=== PATIENT | female | born 1980 | race Caucasian/White ===

== ENCOUNTER 2021-08-25 18:27 | Outpatient (REF) | payer OTHER, SELFPAY ==
[2021-08-25 21:11] LABS: Bacteria Negative HPF (Negative); C & S Indicated? No; Crystals Negative HPF (Negative); Epithelial Cells Rare HPF (Negative); Mucus Negative (Negative); RBC 0-2 HPF (0-2); WBC Negative HPF (0-5)
== END 2021-08-25 18:28 | disposition home or self-care (01) ==
LOC: NCHCN 18:27
PROVIDERS: Visit Provider Nurse Practitioner Family
DX: R31.9 Hematuria, unspecified (principal)
CPT/HCPCS: 81015; 87086

== ENCOUNTER 2021-10-31 08:26 | Outpatient (REF) | payer OTHER, SELFPAY ==
[2021-10-31 13:59] LABS: HGB 13.8 g/dL (11.2-15.7); MCH 28.8 pg (27.0-33.0); MCHC 32.1 % (32.0-36.0); MCV 90 fL (80-95); MPV 9.1 fL (8.0-11.0); Platelet Count 373 10^3/uL (130-400); RDW 12.8 % (11.7-14.6); RDW-SD 42.1 fL; WBC 8.27 10^3/uL (4.4-10.8)
[2021-10-31 14:21] LABS: ALT 69 U/L (14-59); AST 23 U/L (15-37); Albumin 4.1 g/dL (3.4-5.0); Alkaline Phosphatase 105 U/L (46-116); Anion Gap 10.8 mmol/L (3-11); BUN 15 mg/dL (7-18); Bilirubin, Total 0.3 mg/dL (0.2-1.0); CO2 24.2 mmol/L (21.0-32.0); CREATININE 0.7 mg/dL (0.55-1.02); Calculated LDL 113 mg/dL (<100); Chloride 106 mmol/L (98-107); Cholesterol 202 mg/dL (<200); Glucose 91 mg/dL (74-106); HDL Cholesterol 68 mg/dL (40-60); Potassium 4.4 mmol/L (3.5-5.1); Sodium 141 mmol/L (136-145); TSH 1.13 uIU/mL (0.36-3.74); Total Protein 7.3 g/dL (6.4-8.2); Triglyceride 108 mg/dL (<150)
[2021-10-31 14:24] LABS: Hemoglobin A1C 5.6 % (<5.7)
== END 2021-10-31 08:27 | disposition home or self-care (01) ==
LOC: NCHCN 08:26
PROVIDERS: Visit Provider Nurse Practitioner Family
DX: Z00.00 Encounter for general adult medical examination without abnormal findings (principal); F10.10 Alcohol abuse, uncomplicated; Z13.29 Encounter for screening for other suspected endocrine disorder; Z13.1 Encounter for screening for diabetes mellitus; Z13.220 Encounter for screening for lipoid disorders; R31.9 Hematuria, unspecified
CPT/HCPCS: 80053; 80061; 85027; 83036; 84443

== ENCOUNTER 2022-03-16 16:51 | Outpatient (REF) | payer OTHER, SELFPAY ==
--- NOTE | 2022-03-16 16:00 | PAPFT_PTH ---
PATIENT: Taylor Meeks LOC: [facility] [id number] AGE/SX: 41/F ROOM: RE03/16/[address]: Minda Jain : 1980 BED: DIS: 03/16/2022 SPEC #: [id number] RECD: 03/17/22 13:22 STATUS: TANMAY REQ #: [id number] DAVIAN: 03/16/22 16:[address]: Minda Bowles DEPT: [facility] Cytology RECD BY: Mitzi Rehman ENTERED: 03/17/22 13:23 SP TYPE: PAPFT DAVID DR: Unknown,Unknown Tissues: 1 - CX/ENDOCX FOR PAP SMEARS Procedures: PAP THIN PREP/[facility] Screening HPV DNA PROBE Comments: [id number]
== END 2022-03-16 16:52 | disposition home or self-care (01) ==
LOC: NCHCN 16:51
PROVIDERS: Visit Provider Nurse Practitioner Family
DX: Z12.4 Encounter for screening for malignant neoplasm of cervix (principal)
CPT/HCPCS: 88142; 87624

== ENCOUNTER 2024-03-14 17:21 | Outpatient (REF) | payer BC, MEDICAID, SELFPAY ==
[2024-03-14 17:25] LABS: HCT 44.3 % (36.0-46.0); HGB 14.5 g/dL (11.2-15.7); MCH 28.5 pg (27.0-33.0); MCHC 32.7 % (32.0-36.0); MCV 87 fL (80-95); MPV 9.2 fL (8.0-11.0); Platelet Count 330 10^3/uL (130-400); RBC 5.08 10^6/uL (3.93-5.22); WBC 7.22 10^3/uL (4.4-10.8)
[2024-03-14 17:53] LABS: Hemoglobin A1C 5.2 % (<5.7)
[2024-03-14 17:56] LABS: ALT 28 U/L (14-59); AST 19 U/L (15-37); Albumin 3.9 g/dL (3.4-5.0); Alkaline Phosphatase 85 U/L (46-116); Anion Gap 8.4 mmol/L (3-11); BUN 17 mg/dL (7-18); Bilirubin, Total 0.29 mg/dL (0.2-1.0); CO2 27.6 mmol/L (21.0-32.0); CREATININE 0.8 mg/dL (0.55-1.02); Calcium 9.4 mg/dL (8.5-10.1); Calculated LDL 87 mg/dL (<100); Chloride 106 mmol/L (98-107); Cholesterol 172 mg/dL (<200); Estimated GFR 93.12 (mL/min/1.73m2); Glucose 99 mg/dL (74-106); HDL Cholesterol 58 mg/dL (40-60); Potassium 4.2 mmol/L (3.5-5.1); Sodium 142 mmol/L (136-145); TSH 0.66 uIU/Ml (0.36-3.74); Total Protein 7.3 g/dL (6.4-8.2); Triglyceride 135 mg/dL (<150)
== END 2024-03-14 17:22 | disposition home or self-care (01) ==
LOC: NCHCN 17:21
PROVIDERS: Visit Provider Nurse Practitioner Family
DX: E66.8 Other obesity (principal); Z13.1 Encounter for screening for diabetes mellitus; Z13.0 Encounter for screening for diseases of the blood and blood-forming organs and certain disorders involving the immune mechanism; Z13.220 Encounter for screening for lipoid disorders; Z13.228 Encounter for screening for other metabolic disorders; Z13.29 Encounter for screening for other suspected endocrine disorder
CPT/HCPCS: 80053; 80061; 85027; 83036; 84443